=== PATIENT | female | born 1945 | race Caucasian/White ===

== ENCOUNTER 2024-11-30 14:50 | Emergency (ER) | payer OTHER, SELFPAY ==
[2024-11-30 15:07] VITALS: BP 102/62
[2024-11-30 15:53] LABS: Hematocrit 34.0 % (37.0-47.0); Hemoglobin 11.4 g/dL (12.0-16.0); Mean Corp Hgb Conc. 33.5 g/dL (33.0-37.0); Mean Corpuscular Volume 95.8 fL (81.0-99.0); Nucleated Red Blood Cells % 0 %; Platelet Count 142 10^3/uL (130-400); Red Cell Dist. Width 14.1 % (11.5-14.5)
[2024-11-30 16:04] LABS: ALT (SGPT) 19 U/L (0-35); AST (SGOT) 31 U/L (14-36); Albumin 3.8 g/dl (3.5-5.0); Alkaline Phosphatase 99 U/L (38-126); Blood Urea Nitrogen 16 mg/dl (7-17); Calcium 8.7 mg/dl (8.4-10.2); Carbon Dioxide 25 mmol/L (22-30); Chloride 106 mmol/L (98-107); Glucose 95 mg/dl (70-99); Potassium 4.0 mmol/L (3.5-5.1); Sodium 135 mmol/L (135-145); Total Protein 6.3 g/dl (6.3-8.2); eGFR 50.48
[2024-11-30 16:15] LABS: Troponin I < 0.012 ng/ml
--- NOTE | 2024-11-30 18:55 | ED.GENMED ---
History of Present Illness
<Sanjay Hardwick PA-C - Last Filed: 11/30/24 21:58>
General
Chief Complaint: Back Pain
Time Seen by Provider: 11/30/24 18:15
History of Present Illness
History of Present Illness:
79-year-old female with history of epilepsy, chronic kidney disease, hypertension, and hyperlipidemia presents to the emergency department with family for concern of an episode of altered mental status occurring earlier in the day. Apparently her
son-in-law was driving her to a PT appointment and noted that she was somnolent and unable to be aroused for a period of time. She then awoke but was apparently very confused at her appointment and thus was directed to come to the ED. My
evaluation the patient is at her baseline and states she is simply here for pain medication for her chronic back pain. She notes that approximately 3 to 4 months ago her antiepileptic drugs were changed, she had previously been on Keppra twice
daily, this was cut in half in favor of once daily lacosamide. She has not had any seizures in that timeframe.
Past History
<Jamie Everett DO - Last Filed: >
Past History
ED Past Medical History: HTN, Hypercholesterolemia and Other (body spasms of unknown etiology)
ED Past Surgical History: Cardiac
Social History
Tobacco: Former smoker
Alcohol: None
Personal:
Living: with family
Review of Systems
<Sanjay Hardwick PA-C - Last Filed: 11/30/24 21:58>
Review of Systems
Allergies reviewed?: Yes
All Other Systems: ROS reviewed and negative except as documented in HPI and ROS
Phy Exam
<Sanjay Hardwick PA-C - Last Filed: 11/30/24 21:58>
Physical Exam
Physical Exam:
GEN: Well appearing, NAD, WDWN
HEENT: Oral mucosa moist, no scleral icterus, no nasal congestion
Cardiac: Regular rate
Lung: No respiratory distress, no tachypnea
MSK: No gross deformity or injuries
Skin: Good color, no pallor or jaundice, no rashes
Neuro: AO x3; CN II-XII grossly intact. BUE strength 5/5 in all gayle, sensation intact and symmetric. BLE strength 5/5 in all gayle, sensation intact and symmetric
Psych: Calm, cooperative
Course
<Sanjay Hardwick PA-C - Last Filed: 11/30/24 21:58>
Orders/Labs/Results
Orders:
Orders
11/30/24 15:10
Electrocardiogram (*1) Urgent
Reason for Study: Shortness of Breath
CR Chest - 2 Views Urgent
Comment:
Reason For Exam: SOB
11/30/24 15:11
EKG- Treatment ONCE
11/30/24 15:29
Complete Blood Count/With Diff Urgent
Comprehensive Metabolic Panel Urgent
NT-proBNP Urgent
Troponin I Urgent
11/30/24 19:07
Urinalysis Reflex To Culture Urgent
Date Specimen was Collected: 11/30/24
Time Specimen was Collected: 18:29
Urine Microscopic Reflex Cult Urgent
Urine Culture Urgent
NOLVIA Source: U
Specimen Description:
Date Specimen was Collected: 11/30/24
Time Specimen was Collected: 18:29
11/30/24 20:13
Cefdinir [Omnicef] 300 mg PO NOW STA
Abnormal Lab Results
11/30/24 11/30/24
15:29 19:07
WBC 11.5 H 10^3/uL
(4.8-10.8)
RBC 3.55 L 10^6/uL
(4.20-5.40)
Hgb 11.4 L g/dL
(12.0-16.0)
Hct 34.0 L %
(37.0-47.0)
MCH 32.1 H pg
(27.0-31.0)
Abs Immat Gran (auto) 0.1 H 10^3/uL
(0-0.05)
Absolute Neuts (auto) 10.1 H 10^3/uL
(1.4-6.5)
Absolute Lymphs (auto) 1.0 L 10^3/uL
(1.2-3.4)
Neutrophils % 87.7 H %
(42.2-75.2)
Lymphocytes % 8.5 L %
(20.5-51.1)
Creatinine 1.1 H mg/dL
(0.6-1.0)
Leukocyte Esterase Rfl 2+ A
(Negative)
Urine WBC (Reflex) 11-15 A /HPF
(0-5)
Urine Bacteria (Reflex) Many A
(Negative)
Urine Albumin (Reflex) 1+ A
(Neg - Trace)
11/30/24 15:29
11/30/24 15:29
Vital Signs
Initial and Last Documented VS:
Initial Vital Signs
Temp Pulse Resp BP Pulse Ox
98.0 F 54 20 102/62 97
11/30/24 15:07 11/30/24 15:07 11/30/24 15:07 11/30/24 15:07 11/30/24 15:07
Last Documented Vital Signs
Temp Pulse Resp BP Pulse Ox
98.0 F 59 16 129/59 97
11/30/24 15:07 11/30/24 20:23 11/30/24 20:23 11/30/24 20:23 11/30/24 20:23
<Jamie H. Karlos, DO - Last Filed: >
Orders/Labs/Results
Orders:
Orders
11/30/24 15:10
Electrocardiogram (*1) Urgent
Reason for Study: Shortness of Breath
CR Chest - 2 Views Urgent
Comment:
Reason For Exam: SOB
11/30/24 15:11
EKG- Treatment ONCE
11/30/24 15:29
Complete Blood Count/With Diff Urgent
Comprehensive Metabolic Panel Urgent
NT-proBNP Urgent
Troponin I Urgent
11/30/24 19:07
Urinalysis Reflex To Culture Urgent
Date Specimen was Collected: 11/30/24
Time Specimen was Collected: 18:29
Urine Microscopic Reflex Cult Urgent
Urine Culture Urgent
NOLVIA Source: U
Specimen Description:
Date Specimen was Collected: 11/30/24
Time Specimen was Collected: 18:29
11/30/24 20:13
Cefdinir [Omnicef] 300 mg PO NOW STA
Abnormal Lab Results
11/30/24 11/30/24
15:29 19:07
WBC 11.5 H 10^3/uL
(4.8-10.8)
RBC 3.55 L 10^6/uL
(4.20-5.40)
Hgb 11.4 L g/dL
(12.0-16.0)
Hct 34.0 L %
(37.0-47.0)
MCH 32.1 H pg
(27.0-31.0)
Abs Immat Gran (auto) 0.1 H 10^3/uL
(0-0.05)
Absolute Neuts (auto) 10.1 H 10^3/uL
(1.4-6.5)
Absolute Lymphs (auto) 1.0 L 10^3/uL
(1.2-3.4)
Neutrophils % 87.7 H %
(42.2-75.2)
Lymphocytes % 8.5 L %
(20.5-51.1)
Creatinine 1.1 H mg/dL
(0.6-1.0)
Leukocyte Esterase Rfl 2+ A
(Negative)
Urine WBC (Reflex) 11-15 A /HPF
(0-5)
Urine Bacteria (Reflex) Many A
(Negative)
Urine Albumin (Reflex) 1+ A
(Neg - Trace)
11/30/24 15:29
11/30/24 15:29
Vital Signs
Initial and Last Documented VS:
Initial Vital Signs
Temp Pulse Resp BP Pulse Ox
98.0 F 54 20 102/62 97
11/30/24 15:07 11/30/24 15:07 11/30/24 15:07 11/30/24 15:07 11/30/24 15:07
Last Documented Vital Signs
Temp Pulse Resp BP Pulse Ox
98.0 F 59 16 129/59 97
11/30/24 15:07 11/30/24 20:23 11/30/24 20:23 11/30/24 20:23 11/30/24 20:23
<Sanjay Hardwick PA-C - Last Filed: 11/30/24 21:58>
MDM/Problems Addressed
MDM/Problems Addressed:
Based on the description of patient's earlier episode this sounds compatible with her prior episode of partial or absence type seizures. I suspect she had a breakthrough seizure secondary to pyuria and will treat accordingly. However she is
advised to follow-up with her neurologist to discuss dose adjustments as needed. She has no neurologic deficits that would warrant imaging for CVA workup
<Sanjay Hardwick PA-C - Last Filed: 11/30/24 21:58>
*Pulse Oximetry
Patient hypoxic: no
*Critical Care Note
Total Time (30-74mins, 75-104mins- exclusive of procedures): Not Applicable
<Jamie Everett DO - Last Filed: >
*Pulse Oximetry
SaO2: 97
Oxygen Mode of Delivery: Room air
ED Attending Note
<Jamie Everett DO - Last Filed: >
-
Portions of this chart may have been created with voice recognition software.� Occasional wrong word or��sound alike� substitutions may have occurred due to the inherent limitations of voice recognition software.
Discharge Plan
Departure
Patient Disposition: Home (Routine Discharge)
Date of Disposition: 11/30/24
Time of Disposition: 20:13
Patient with high blood pressure during this ER visit?: No
Discharge Problem:
Breakthrough seizure, Acute UTI
Instructions: Urinary tract infections in adults
Prescriptions:
New
cefdinir 300 mg capsule
300 mg PO BID Qty: 13 0RF
oxycodone-acetaminophen [Percocet] 5-325 mg tablet
1 tab PO Q6HPRN PRN (Reason: pain) Qty: 10 0RF
No Action
bupropion HCl 150 MG tablet sustained-release 12 hr
150 mg PO DAILY
clonazepam 0.5 MG tablet
0.5 mg PO BID
simvastatin 40 MG tablet
40 mg PO HS
doxepin 100 MG capsule
200 mg PO HS
atenolol 50 MG tablet
50 mg PO DAILY
Referrals:
Inder Kang MD [Family Provider, Internal Medicine]
Activity Restrictions/Additional Instructions:
If you have any further episodes of seizure-like activity follow-up with your neurologist to discuss medication adjustments, however this episode was most likely provoked by your urinary tract infection and by treating it should reduce the risk of
any further episodes
Interventions
Interventions:
*Risk Screen - Suicide Last Done: 11/30/24 20:36
*General Assessment Last Done: 11/30/24 15:07
*Neglect/Abuse Screening Last Done: 11/30/24 20:36
*ED- Fall Risk Assessment Last Done: 11/30/24 20:36
*ED COVID-19 Vaccine History Last Done: 11/30/24 20:36
*Nursing Disposition Last Done: 11/30/24 20:36
ED-Musculoskeletal Assessment Last Done: 11/30/24 19:00
Discharge Date and Time
Discharge Date/Time: 11/30/24 20:38
Print Language: OCCITAN
[2024-11-30 19:36] LABS: Urine Character Slightly Cloudy (Clear)
[2024-11-30 19:59] LABS: Urine Red Blood Cell 0-2 /HPF (0-2); Urine Squamous Cell >30 /LPF (Few)
[2024-11-30] MEDS: OMNICEF 300 MG PO (20:21)
[2024-11-30 20:23] VITALS: BP 129/59
== END 2024-11-30 20:38 | disposition home or self-care (01) ==
LOC: EMR 14:50
PROVIDERS: Emergency Medicine; Physician Assistant; EMERGENCY PHYSICIAN Emergency Medicine; FAMILY PHYSICIAN Internal Medicine
DX: R41.82 Altered mental status, unspecified (principal); R40.0 Somnolence; R06.02 Shortness of breath; M54.9 Dorsalgia, unspecified; G40.909 Epilepsy, unspecified, not intractable, without status epilepticus; N39.0 Urinary tract infection, site not specified; I12.9 Hypertensive chronic kidney disease with stage 1 through stage 4 chronic kidney disease, or unspecified chronic kidney disease; N18.9 Chronic kidney disease, unspecified; E78.00 Pure hypercholesterolemia, unspecified; G89.29 Other chronic pain; Z87.891 Personal history of nicotine dependence; Z88.5 Allergy status to narcotic agent
CPT/HCPCS: 99283; 71046; 80053; 81003; 81015; 83880; 84484; 85025; 87086; 93005

== ENCOUNTER → 2025-02-03 15:55 | Outpatient (REF) | payer OTHER, SELFPAY | LOC: HWRCS 15:55 | PROVIDERS: ATTENDING PHYSICIAN Nurse Practitioner; FAMILY PHYSICIAN Internal Medicine | DX: G45.9 Transient cerebral ischemic attack, unspecified (principal) | CPT/HCPCS: 93306 ==